=== PATIENT | female | born 1995 | race Two or more races ===

== ENCOUNTER 2022-11-20 08:24 | Emergency (ER) | payer MEDICAID, OTHER ==
[~2022-11-20] VITALS: Ht 162.6 cm; Wt 76.2 kg
[2022-11-20 08:37] VITALS: BP 105/63
== END 2022-11-20 17:35 | disposition left against medical advice (07) ==
LOC: ER 08:24
DX: O20.8 Other hemorrhage in early pregnancy (principal); Z3A.01 Less than 8 weeks gestation of pregnancy; Z53.21 Procedure and treatment not carried out due to patient leaving prior to being seen by health care provider

== ENCOUNTER → 2024-04-04 | Emergency (ER) | payer MEDICAID ==
[~2024-04-04] VITALS: Ht 162.6 cm; Wt 75.0 kg
[~2024-04-04] MED LIST: BACDST PO; CLIN1CAP70 PO; MUPI2CRE17 EX
[2024-04-04 18:57] VITALS: PULSE 108
[2024-04-04 19:21] LABS: Basophils # (auto) 0 10 ^3/uL (0-0.2); Basophils % (auto) 0.2 % (0.0-2.0); Eosinophils # (auto) 0 10 ^3/uL (0-0.8); Eosinophils % (auto) 0.2 % (0.0-7.0); Hematocrit 39.1 % (36.0-46.0); Hemoglobin 13.2 g/dL (12.2-16.2); Lymphocytes # (auto) 1.2 10 ^3/uL (0.4-5.4); Lymphocytes % (auto) 9.5 % (10.0-50.0); Mean Corpuscular Hemoglobin 30.3 pg (28.0-32.0); Mean Corpuscular Hgb Conc. 33.7 g/dL (32.0-36.0); Mean Corpuscular Volume 89.9 fL (80.0-100.0); Monocytes % (auto) 7.6 % (0.0-12.0); Neutrophils # (auto) 10.7 10 ^3/uL (1.6-8.6); Neutrophils % (auto) 82.5 % (37.0-80.0); Nucleated Red Blood Cells % 0.1 %; Platelet Count (auto) 308 10^3/uL (140-450); Red Blood Cells 4.35 10^6/uL (4.0-5.20); Red Cell Distribution Width 15.4 % (11.8-14.3)
[2024-04-04 19:26] LABS: Chloride 100 mmol/L (98-107); Potassium 4.2 mmol/L (3.5-5.1); Sodium 135 mmol/L (136-145)
[2024-04-04 19:27] LABS: Anion Gap 10 (5-15); Calcium 9.3 mg/dL (8.7-10.4); Carbon Dioxide 25 mmol/L (20-30)
[2024-04-04 19:32] LABS: BUN/Creatinine Ratio 11.5 (10.0-20.0); Blood Urea Nitrogen 12 mg/dL (9-23); Glucose 97 mg/dL (74-106)
[2024-04-04] MEDS: ONDANSETRON HCL 4 MG/2 ML VIAL IV ONE (19:49)
[2024-04-04] MEDS: MORPHINE SULFATE 4 MG/ML SYR/VIAL IV ONE (19:51)
[2024-04-04] MEDS: PIPERACILLIN-TAZO 4.5GM 100 ML IV ONE (22:11)
[2024-04-04 23:19] VITALS: BP 107/64; PULSE 103; RESP 16; TEMP 98.7; O2SAT 98
== END | disposition home or self-care (01) ==
LOC: EDUNIT# 18:13 → ER 18:16 → EDBD 18:16
DX: L03.116 Cellulitis of left lower limb (principal)
CPT/HCPCS: 36415; 73562; 80048; 83605; 85025; 87040; 96365; 96375; 99285; J2270; J2405; J2543